=== PATIENT | male | born 1985 | race Caucasian/White ===

== ENCOUNTER 2018-11-19 17:43 | Emergency (ER) | payer BC ==
[2018-11-19] MEDS ORDERED: Cyclobenzaprine 10 MG TAB ONE (18:04)
[2018-11-19] MEDS ORDERED: Ondansetron ODT 4 MG TAB ONE (18:06)
[2018-11-19] MEDS ORDERED: Ketorolac Tromethamine 60 MG/2 ML VIAL ONE (19:01)
== END 2018-11-19 19:51 | disposition home or self-care (01) ==
LOC: ERS 17:43
DX: S16.1XXA Strain of muscle, fascia and tendon at neck level, initial encounter (principal); F41.9 Anxiety disorder, unspecified; F32.9 Major depressive disorder, single episode, unspecified; Z79.899 Other long term (current) drug therapy
CPT/HCPCS: 96372; J1885; Q0162